=== PATIENT | male | born 1970 | race Caucasian/White ===

== ENCOUNTER → 2017-09-26 11:38 | Outpatient (REF) | payer BC, SELFPAY ==
[2017-09-26 17:58] LABS: Basophils % 0.4 % (0.1-2.0); Eosinophils % 0.3 % (0.1-12.0); Hematocrit 50.1 % (42.0-52.0); Hemoglobin 16.5 g/dL (14.1-18.0); Lymphocytes # 1.7 K/mm3 (0.7-4.5); Lymphocytes % 16.3 K/mm3 (10-50); Mean Corpuscular HGB Conc 32.9 g/dL (31.8-35.4); Mean Corpuscular Hemoglobin 29.6 pg (27.0-31.2); Mean Corpuscular Volume 89.8 fl (80-94); Mean Platelet Volume 9.2 fl (7.4-10.4); Monocytes # 0.7 K/mm3 (0.1-1.0); Monocytes % 6.2 % (1.7-9.3); Neutrophils # 8.2 K/mm3 (1.8-7.8); Neutrophils % 76.7 % (37.0-80.0); Platelet Count 261 K/mm3 (142-424); Red Blood Count 5.58 M/mm3 (4.60-6.20); Red Cell Distribution Width 13.1 % (11.5-17.5); White Blood Count 10.6 K/mm3 (4.8-10.8)
[2017-09-26 18:44] LABS: Alanine Aminotransferase 43 U/L (12-78); Albumin Level 3.9 gm/dL (3.4-5.0); Albumin/Globulin Ratio 1.1 (1.1-1.8); Alkaline Phosphatase 107 U/L (46-116); Anion Gap 14.1 mEq/L (5-15); Aspartate Amino Transferase 12 U/L (15-37); Bilirubin,Total 0.3 mg/dL (0.2-1.0); Blood Urea Nitrogen 15 mg/dL (7-18); Calcium 8.6 mg/dL (8.5-10.1); Carbon Dioxide 28 mmol/L (21.0-32.0); Chloride 104 mmol/L (98-107); Chol/HDL Ratio 10.5 (1-3.5); Cholesterol 262 mg/dL (140-200); Creatinine,Serum 0.98 mg/dL (0.70-1.30); Estimated Glomerular Filt Rate 82 ml/min (>60); Free T4 (Free Thyroxine) 0.96 ng/dl (0.76-1.46); GFR (African American) 99 ML/MIN (>60); Globulin 3.7 gm/dl (1.3-3.2); Glucose 156 mg/dL (74-106); HDL Cholesterol 25 mg/dL (27-67); LDL Cholesterol 182 mg/dL (0-130); Potassium 4.1 mmoL/L (3.5-5.1); Sodium 142 mmol/L (136-145); Thyroid Stimulating Hormone 1.86 uIU/ml (0.358-3.740); Total Protein,Serum 7.6 gm/dL (6.4-8.2); Triglycerides 275 mg/dL (30-200); VLDL Cholesterol 55 mg/dL (0-40)
[2017-09-28 10:11] LABS: Hep A Ab, IgM Negative (Negative); Hepatitis B Core Antibody IgM Negative (Negative); Hepatitis B Surface Antigen Negative (Negative)
[2017-09-28 18:36] LABS: Hepatitis C Antibody <0.1 s/co ratio (0.0-0.9)
[2017-10-01 03:49] LABS: 1,25-Dihydroxy, Vitamin D-2 <10 pg/mL (.)
[2017-10-01 06:30] LABS: 1,25 Dihydroxy Vitamin D 118 pg/mL (.); 1,25-Dihydroxy, Vitamin D-3 118 pg/mL (.)
== END ==
LOC: LAB 11:38
PROVIDERS: Visit Provider Nurse Practitioner Family
DX: R53.83 Other fatigue (principal)
CPT/HCPCS: 80053; 80061; 80074; 82652; 84439; 84443; 85025

== ENCOUNTER → 2017-09-27 09:56 | Outpatient (CLI) | payer BC, SELFPAY ==
--- NOTE | 2017-09-27 10:00 | US_ITS ---
US thyroid HISTORY: Neck swelling ITS.REASON: thyroid nodule ORDERING PHYSICIAN: Laith Rich PATIENT AGE: 46 years COMPARISON: None FINDINGS: The right lobe is 4.6 x 1.8 x 1.7 cm. The left lobe is 4.4 x 1.5 x 1.5 cm. There is homogeneous echogenicity of the thyroid gland on both sides. No discrete nodule. The isthmus is prominent at 5 mm. IMPRESSION: Thyromegaly, no discrete nodule evident.
== END ==
PROVIDERS: Family Provider Nurse Practitioner; PCP Nurse Practitioner Family; Visit Provider Nurse Practitioner Family
DX: E04.1 Nontoxic single thyroid nodule (principal)
CPT/HCPCS: 76536

== ENCOUNTER → 2017-10-04 08:48 | Outpatient (CLI) | payer BC, SELFPAY ==
[2017-10-04 09:57] LABS: Hemoglobin A1C 7.4 % (0.0-7.0)
== END ==
PROVIDERS: Visit Provider Nurse Practitioner Family
DX: R05 Cough (principal); R73.9 Hyperglycemia, unspecified
CPT/HCPCS: 36415; 83036; 87275; 87276

== ENCOUNTER → 2017-10-11 11:38 | Outpatient (REF) | payer BC, SELFPAY ==
[2017-10-22 18:11] LABS: Calcium phosphate 20 % (.); Size 4x3x2 mm (.)
[2017-11-08 10:26] LABS: Specimen Type Comment: (.)
== END ==
LOC: LAB 11:38
PROVIDERS: Visit Provider Nurse Practitioner Family
DX: N20.0 Calculus of kidney (principal)
CPT/HCPCS: 82370

== ENCOUNTER → 2017-10-25 14:18 | Outpatient (CLI) | payer BC, SELFPAY ==
--- NOTE | 2017-10-25 14:06 | XR_ITS ---
XR chest 2V INDICATION: Chronic cough COMPARISON: PA and lateral chest 01/28/2014 FINDINGS: The cardiovascular structures are unremarkable. No mediastinal shift or hilar mass is evident. The lungs are well expanded and clear bilaterally. The costophrenic sulci are sharp. No significant bony anomalies are apparent. IMPRESSION: Negative chest.
[2017-10-27 18:51] LABS: Thyroid Peroxidase Antibodies 15 IU/mL (0-34)
[2017-10-29 06:03] LABS: Thyroid Stimulating Immunoglob <0.10 IU/L (0.00-0.55)
== END ==
PROVIDERS: Family Provider Nurse Practitioner; PCP Nurse Practitioner Family; Visit Provider Otolaryngology
DX: R05 Cough (principal); E01.0 Iodine-deficiency related diffuse (endemic) goiter
CPT/HCPCS: 36415; 71046; 83520; 86376

== ENCOUNTER → 2017-11-08 11:35 | Outpatient (REF) | payer BC, SELFPAY ==
[2017-11-08 14:04] LABS: Hemoglobin A1C 6.3 % (0.0-7.0)
== END ==
LOC: LAB 11:35
PROVIDERS: Visit Provider Nurse Practitioner Family
DX: E11.9 Type 2 diabetes mellitus without complications (principal)
CPT/HCPCS: 83036

== ENCOUNTER → 2018-05-22 14:54 | Outpatient (CLI) | payer BC, SELFPAY ==
--- NOTE | 2018-05-22 14:58 | US_ITS ---
US thyroid HISTORY: Follow-up enlarged thyroid gland ITS.REASON: hx enlarged thyroid ORDERING PHYSICIAN: Goran Harrell MD PATIENT AGE: 47 years Comparison: 09/27/17 FINDINGS: The right lobe is 4.5 x 1.4 x 2.8 cm. Homogeneous echogenicity without obvious nodule. Left lobe is 4.3 x 1.4 x 1.6 cm. Homogeneous echogenicity without obvious nodule. The isthmus is unremarkable at 3 mm. IMPRESSION: Mildly enlarged thyroid. No discrete nodule and no significant change
== END ==
PROVIDERS: PCP Nurse Practitioner Family; Visit Provider Otolaryngology
DX: E01.0 Iodine-deficiency related diffuse (endemic) goiter (principal)
CPT/HCPCS: 76536

== ENCOUNTER → 2020-10-14 13:47 | Outpatient (CLI) | payer BC, SELFPAY ==
[2020-10-14 14:04] LABS: Alanine Aminotransferase 23 U/L (12-78); Albumin Level 4.4 g/dl (3.5-5.0); Albumin/Globulin Ratio 1.6 (1.1-1.8); Alkaline Phosphatase 80 U/L (38-126); Anion Gap 14.3 mEq/L (5-15); Aspartate Amino Transferase 34 U/L (17-59); Bilirubin,Total 0.5 mg/dl (0.2-1.3); Blood Urea Nitrogen 14 mg/dl (9-20); Calcium 9.7 mg/dl (8.4-10.2); Carbon Dioxide 25 mmol/L (22.0-30.0); Chloride 106 mmol/L (98-107); Chol/HDL Ratio 8.4 (1-3.5); Cholesterol 234 mg/dl (140-200); Estimated Glomerular Filt Rate 71 ml/min (>60); GFR (African American) 85 ML/MIN (>60); Globulin 2.8 g/dL (1.3-3.2); Glucose 117 mg/dl (74-100); HDL Cholesterol 28 mg/dl (40-60); Potassium 4.3 mmoL/L (3.5-5.1); Sodium 141 mmol/L (136-145); Total Protein,Serum 7.2 g/dl (6.3-8.2); Triglycerides 136 mg/dl (30-150); VLDL Cholesterol 27 mg/dL (0-40)
[2020-10-14 14:13] LABS: Basophils # 0.1 K/mm3 (0-0.2); Basophils % 0.8 % (0.1-2.0); Eosinophils # 0.3 K/mm3 (0.0-0.4); Eosinophils % 2.9 % (0.1-12.0); Hemoglobin 15.6 g/dL (14.1-18.0); Lymphocytes # 2.7 K/mm3 (0.7-4.5); Lymphocytes % 28.5 % (10-50); Mean Corpuscular HGB Conc 32.5 g/dL (31.8-35.4); Mean Corpuscular Hemoglobin 28.6 pg (27.0-31.2); Mean Corpuscular Volume 88.1 fl (80-94); Mean Platelet Volume 8.2 fl (7.4-10.4); Monocytes # 0.6 K/mm3 (0.1-1.0); Monocytes % 6.3 % (1.7-9.3); Neutrophils # 5.7 K/mm3 (1.8-7.8); Neutrophils % 61.4 % (37.0-80.0); Platelet Count 256 K/mm3 (142-424); Red Blood Count 5.45 M/mm3 (4.60-6.20); Red Cell Distribution Width 13.1 % (11.5-17.5); White Blood Count 9.3 K/mm3 (4.8-10.8)
[2020-10-14 14:15] LABS: Direct LDL Cholesterol 177.45 mg/dL (100-129)
[2020-10-14 14:21] LABS: T4 (Thyroxine) 7.4 ug/dl (5.53-11.0)
[2020-10-14 14:22] LABS: 25-OH Vitamin D, Total 49.8 ng/mL (30-100)
[2020-10-14 14:35] LABS: Thyroid Stimulating Hormone 1.26 uIU/mL (0.465-4.68)
[2020-10-14 14:38] LABS: Hemoglobin A1C 6.9 % (4.0-6.0)
[2020-10-16 14:08] LABS: PSA, Free 0.24 ng/mL; Prostate Specific Ag 0.6 ng/mL (0.0-4.0)
[2020-10-22 12:22] LABS: Testosterone, Total, LC/MS 324.8 ng/dL (264.0-916.0); Testosterone,Free 10.5 pg/mL (7.2-24.0)
== END ==
PROVIDERS: Visit Provider Nurse Practitioner Family
DX: Z00.00 Encounter for general adult medical examination without abnormal findings (principal); E04.9 Nontoxic goiter, unspecified; E11.9 Type 2 diabetes mellitus without complications; N52.9 Male erectile dysfunction, unspecified
CPT/HCPCS: 80053; 80061; 82306; 83036; 84153; 84154; 84402; 84403; 84436; 84443; 85025

== ENCOUNTER 2024-09-09 11:12 | Outpatient (CLI) | payer BC, SELFPAY ==
--- NOTE | 2024-09-09 11:17 | XR_ITS ---
FINAL REPORT CLINICAL HISTORY: Shortness of breath COMPARISON: None FINDINGS: No acute pulmonary density is evident. There is no evidence of effusion or other pleural disease. The mediastinum has a normal appearance. There are healing subacute fractures of the left lateral 8th and 9th ribs. The cardiac silhouette is unremarkable. IMPRESSION: No acute cardiopulmonary process. Healing subacute left rib fractures. Reviewed, Interpreted and Dictated by Cathi Gill MD Transcribed by Maggie Sethi Authenticated and [facility]
== END 2024-09-09 23:59 | disposition home or self-care (01) ==
LOC: RAD 11:15
PROVIDERS: PCP Nurse Practitioner Family; Visit Provider Nurse Practitioner Family
DX: R06.00 Dyspnea, unspecified (principal); J22 Unspecified acute lower respiratory infection
CPT/HCPCS: 71046

== ENCOUNTER 2025-04-30 09:49 | Outpatient (CLI) | payer BC, SELFPAY ==
[2025-04-30 17:01] LABS: Hematocrit 49.7 % (42.0-52.0); Hemoglobin 17.5 g/dL (14.1-18.0); Immature Granulocytes % 0.5 %; Mean Corpuscular HGB Conc 35.2 g/dL (31.8-35.4); Mean Corpuscular Hemoglobin 30.2 pg (27.0-31.2); Mean Corpuscular Volume 85.8 fl (80-94); Nucleated Red Blood Cells % 0 %; Platelet Count 221 K/mm3 (142-424); Red Blood Count 5.79 M/mm3 (4.60-6.20); Red Cell Distribution Width-SD 38.3 fL; White Blood Count 10.5 K/mm3 (4.8-10.8)
[2025-04-30 17:16] LABS: Hemoglobin A1C 12.1 % (4.0-6.0)
[2025-04-30 22:56] LABS: Albumin Level 4.3 g/dl (3.5-5.0); Chloride 99 mmol/L (98-107); Potassium 4.3 mmoL/L (3.5-5.1); Sodium 132 mmol/L (136-145)
[2025-04-30 22:59] LABS: Alanine Aminotransferase 37 U/L (12-78); Albumin/Globulin Ratio 1.3 (1.1-1.8); Alkaline Phosphatase 134 U/L (38-126); Anion Gap 12.3 mEq/L (5-15); Aspartate Amino Transferase 30 U/L (17-59); Bilirubin,Total 0.9 mg/dl (0.2-1.3); Blood Urea Nitrogen 11 mg/dl (9-20); Carbon Dioxide 25 mmol/L (22.0-30.0); Cholesterol 242 mg/dl (140-200); Creatinine,Serum 0.90 mg/dl (0.66-1.25); Estimated Glomerular Filt Rate 87 ml/min (>60); GFR (African American) 106 ML/MIN (>60); Globulin 3.3 g/dL (1.3-3.2); Total Protein,Serum 7.6 g/dl (6.3-8.2)
[2025-04-30 23:00] LABS: Calcium 8.9 mg/dl (8.4-10.2); Glucose 322 mg/dl (74-100); HDL Cholesterol 27 mg/dl (40-60)
[2025-04-30 23:14] LABS: Triglycerides 501 mg/dl (30-150)
--- OUTSIDE RECORDS SUMMARY | 2025-05-03 09:58 | XMS_ITS | Data Portability ---
Author Organization [facility] Address [address] [place] [address] Assessment No assessment recorded. Plan of Treatment Reminders Order Date Submit Date Provider Last Modified By Organization Details Last Modified Time Details Appointments None record ed. Lab None record ed. Referral None record ed. Procedures None record ed. Surgeries None record ed. Imaging None record ed. Medication Orders None record ed. Patient TargetsNo targets recorded. Patient InstructionsNo instructions recorded. Reason for Referral None Reported. Problems Name Problem SNOMED Code Status Onset Date Resolution Date Notes Provider Name and Address Organization Details Recorded Time Sensorine ural hearing loss of bilateral ears 879906934 Active 2015 From Automated Load;Prov ider: Lobito Stewart III tatus: Active Not Available [facility] 6 03:48:47 Bilateral tinnitus 47088629906 02 Active 2015 From Automated Load;Prov ider: Lobito Stewart III tatus: Active Not Available [facility] 6 03:48:47 Clinical finding Active 2015 From Automated Load;Prov ider: Lobito Stewart III tatus: Active Not Available [facility] 6 03:48:47 Perennial allergic rhinitis 345854806 Active 2015 From Automated Load;Prov ider: Lobito Stewart III tatus: Active Not Available [facility] 6 03:48:47 Sensorine ural hearing loss 80274642 Active 2015 Provider: Lobito Stewart IIIus: Active Not Available [facility] 6 03:48:47 Tinnitus 67782436 Active 2015 Provider: Lobito Stewart III tatus: Active Not Available [facility] 6 03:48:47 Deviated nasal septum 360594611 Active 2015 Provider: Lobito Stewart III tatus: Active Not Available [facility] 6 03:48:47 Hypertrop hy of nasal turbinate s 31832448 Active 2015 Provider: Lobito Stewart III tatus: Active Not Available [facility] 6 03:48:47 Eustachia n tube disorder 46495687 Active 2015 Provider: Lobito Stewart III tatus: Active Not Available [facility] 6 03:48:47 Cough 67819621 Active 2015 Provider: Lobito Stewart III tatus: Active Not Available [facility] 6 03:48:47 Snoring 26856605 Active 2015 Provider: Lobito Stewart III tatus: Active Not Available [facility] 6 03:48:47 Sleep disorder 77398161 Active 2015 Provider: Lobito Stewart III tatus: Active Not Available [facility] 6 03:48:47 Allergic rhinitis caused by animal dander 267379525 Active 2015 From Automated Load;Prov ider: Lobito Stewart III tatus: Active Not Available [facility] 6 03:48:47 Allergic rhinitis 16179430 Active 2015 Provider: Lobito Stewart III tatus: Active Not Available [facility] 6 03:48:47 Allergic rhinitis caused by pollen 31257804 Active 2015 From Automated Load;Prov ider: Lobito Stewart III tatus: Active Not Available [facility] 6 03:48:47 Problem Notes None recorded. Procedures Surgical History Date Name Laterality Status Provider Name and Address Organization Details Recorded Time 9 Vial Preparation completed [facility] 06/10/2019 08:36:47 9 Vial Preparation completed [facility] 04/13/2019 16:43:20 9 Vial Preparation completed Kathy Minix [place] [facility] 02/17/2019 09:36:50 9 Vial Preparation completed Raejean Perraut [place] [facility] 12/16/2018 13:25:16 9 Vial Preparation completed Kathy Minix [place] [facility] 10/28/2018 11:43:55 9 Vial Preparation completed Kathy Minix [place] [facility] 09/02/2018 11:28:38 9 Vial Preparation completed Kathy Minix [place] [facility] 07/15/2018 09:35:11 8 Vial Preparation completed Kathy Minix [place] [facility] 05/22/2018 08:48:50 8 Vial Preparation completed Catarina Pippa [place] [facility] 04/02/2018 14:10:29 8 Vial Preparation completed Kathy Minix [place] [facility] 02/07/2018 11:02:23 8 Vial Preparation completed Kathy Minix [place] [facility] 12/17/2017 16:52:13 8 Vial Preparation completed Kathy Minix [place] [facility] 10/23/2017 10:38:23 8 Vial Preparation completed Catarina Pippa [place] [facility] 09/03/2017 14:35:46 8 Vial Preparation completed Raejean Perraut [place] [facility] 07/16/2017 09:45:25 7 Vial Preparation completed Catarina Pippa [place] [facility] 06/05/2017 11:39:53 7 Vial Preparation completed Kathy Minix [place] [facility] 04/17/2017 12:46:38 7 Vial Preparation completed Kathy Minix [place] [facility] 02/27/2017 11:12:41 7 Vial Preparation completed Kathy Minix [place] [facility] 01/10/2017 10:47:36 7 Vial Preparation completed Kathy Minix [place] [facility] 11/22/2016 09:25:21 7 Vial Preparation completed Jewel Zuleta [facility] 10/01/2016 13:32:59 7 Vial Preparation completed Kathy Green [facility] 08/09/2016 09:54:54 Imaging Results None recorded. Procedure Notes None recorded. Medical Equipment None Reported. Allergies No known drug allergies Medications Name Sig Start Date Stop Date Status Note LastModified by Organization Details LastModified Time Singulair 10 mg tablet Daily 07/14 completed Frequen cy: daily;M edicati on Descrip tion: montelu kast; Dosage: 1; Route:o ral; refills :5; Quantit y:30 tablet Not Available Not Available Not Available omeprazole 40 mg capsule,de layed release Take 1 capsule every day by oral route. 2018 active Not Available Not Available Not Avai lable benzonatat e 100 mg capsule 07/14 completed Not Available Not Available Not Available epinephrin e 0.3 mg/0.3 mL injection, auto-injec tor Take 1 auto by injectio n route. 2018 active Not Available Not Available Not Avai lable levofloxac in 500 mg tablet 07/14 completed Not Available Not Available Not Available amoxicilli n 875 mg-potassi um clavulanat e 125 mg tablet 07/14 completed Not Available Not Available Not Available levocetiri zine 5 mg tablet take 1 tablet by mouth once daily 2018 active Not Available Not Available Not Avai lable Vitals None Recorded Social History None recorded. Functional Status None recorded. Mental Status None recorded. Family History Nothing Reported. Medical History Condition Response Allergies/Hayfever Y Past Encounters Encounter ID Performer Location Encounter Start Date Encounter Closed Date Diagnosis/Indication Diagnosis SNOMED-CT Code Diagnosis ICD10 Code Diagnosis IMO Codes Diagnosis Note [id number] MD [facility]UAN DIAZ [facility] [address] [place] [address] 08/09/2016 09:48:58 08/09/2016 09:49:16 [id number] MD JUAN [address] [facility] [address] [place] [address] 10/01/2016 13:30:06 10/01/2016 13:35:04 [id number] MD JUAN DIAZ [facility]NT [address] 7 11/22/2016 08:28:50 11/22/2016 09:28:26 [id number] MD JUAN ACOSTA III ENT [address] 7 12/11/2016 08:46:36 12/11/2016 11:20:38 Allergic rhinitis 64063873 J30.9 - currently on SLIT Gastroesop hageal reflux disease 045409868 K21.9 [id number] MD JUAN DIAZ [facility]NT [address] 7 01/10/2017 10:42:38 01/10/2017 10:53:08 [id number] MD JUAN GARCIA ENT [address] [place] [id number] 02/27/2017 10:48:05 02/27/2017 11:14:12 [id number] MD JUAN GARCIA [address]NT [address] [place] [id number] 04/17/2017 12:18:51 04/17/2017 12:49:27 [id number] MD JUAN GARCIA [facility]NT [id number] 7 06/05/2017 11:31:28 06/05/2017 11:41:39 [id number] MD JUAN ACOSTA III [id number] 7 07/16/2017 08:31:00 07/16/2017 09:46:54 [id number] MD JUAN LEI ENT [id number] 7 09/03/2017 14:06:21 09/03/2017 14:37:56 [id number] MD JUAN GARCIA [address]NT [address] [place] [address] 10/23/2017 10:37:20 10/23/2017 10:39:18 [id number] MD JUAN LEI [facility]NT [address] [place] [address] 12/17/2017 09:51:24 12/17/2017 16:54:17 [id number] MD JUAN ACOSTA III [address]NT [address] [place] [address] 02/07/2018 11:00:39 02/07/2018 11:04:10 [id number] MD JUAN GARCIA [facility]NT [address] [place] [address] 04/02/2018 14:08:41 04/02/2018 14:12:55 [id number] MD JUAN DIAZ [address]NT [address] [place] [address] 05/22/2018 08:47:32 05/22/2018 08:50:15 [id number] MD JUAN ACOSTA [address] [place] [address] 07/14/2018 13:28:14 07/14/2018 16:02:09 Allergic rhinitis caused by mold 2674958977 9883652 Z77.120 Allergic r hinitis caused by house dust mite 293622443 J30.89 Allergic r hinitis caused by animal dander 341832898 J30.81 Allergic r hinitis caused by weed pollen 30057207 J30.1 Allergic r hinitis caused by tree pollen 35201146 J30.1 Hypertroph y of nasal turbinates 27195140 J34.3 Edema of uvula 819058724 J39.8 Disorder o f uvula of palate 943391210 J39.9 Snoring 66065394 R06.83 [id number] MD JUAN LEI [address]NT [address] [place] [address] 07/15/2018 08:35:23 07/15/2018 09:36:26 [id number] MD JUAN ACOSTA III [address] [place] [address] 09/02/2018 10:54:42 09/02/2018 11:29:50 [id number] MD JUAN LEI [address] [place] [address] 10/28/2018 09:23:03 10/28/2018 11:45:26 [id number] MD JUAN ACOSTA III [address] [place] [address] 12/16/2018 09:18:38 12/16/2018 13:26:41 [id number] MD JUAN LEI [address] [place] [address] 02/17/2019 08:38:08 02/17/2019 09:37:56 [id number] MD JUAN LOPEZ [facility] [address] [place] [address] 04/13/2019 15:36:38 04/13/2019 17:01:10 [id number] MD JUAN DIAZ [facility] [address] [place] [address] 06/10/2019 08:35:47 06/10/2019 08:38:50 Health Concerns Section Related Observation LastModified by Organization Detai ls LastModified Time None Recorded Concern Status LastModified by Organization Details LastModified Time None Recorded Advance Directives Directive None Recorded Payers Insurance Date Sequence Insurance Name Policy Number Policy Tyler Covered Member ID Tyler Member ID Guarantor Name 12/11/2016 1 *SELF PAY* Jerel Correa 10/12/2020 1 [employer] [id number] Heena Correa [id number] Jose Correa
== END 2025-04-30 23:59 ==
LOC: LAB.DROPOF 05-03 09:50
PROVIDERS: PCP Internal Medicine; Visit Provider Internal Medicine
DX: N18.9 Chronic kidney disease, unspecified (principal); E11.9 Type 2 diabetes mellitus without complications; E78.5 Hyperlipidemia, unspecified; Z13.220 Encounter for screening for lipoid disorders
CPT/HCPCS: 80053; 80061; 83036; 85025